=== PATIENT | male | born 1930 | race Caucasian/White ===

== ENCOUNTER → 2019-03-22 | Outpatient (CLI) | payer OTHER | LOC: RAD 10:33 → EDBD 10:33 | DX: J90 Pleural effusion, not elsewhere classified (principal); Z88.0 Allergy status to penicillin; Z88.7 Allergy status to serum and vaccine ==

== ENCOUNTER → 2019-03-26 | Outpatient (CLI) | payer OTHER ==
[2019-03-26 12:40] LABS: HEMATOCRIT 41.7 % (42.0-52.0); HEMOGLOBIN 13.9 gm/dL (14.0-18.0); MCH 28.2 pg (26.0-34.0); MCHC 33.4 g/dL (28.0-37.0); MCV 84.4 fL (80.0-100.0); RBC 4.93 mil/uL (4.50-6.00); WBC 6.1 thou/uL (4.0-11.0)
[2019-03-26 12:42] LABS: CALCIUM 9.4 mg/dL (8.5-10.1); CREATININE 1.1 mg/dL (0.7-1.3); POTASSIUM 4.1 mmol/L (3.5-5.1)
[2019-03-26 12:55] LABS: PROTIME 10.9 Seconds (9.3-11.4)
[2019-03-26 14:13] LABS: CLARITY SLIGHTLY CLOUDY; COLOR YELLOW; SOURCE RIGHT THORACENTESIS; TOTAL VOLUME 60 mL
[2019-03-26 14:15] LABS: SOURCE RIGHT THORACENTESIS; SOURCE RIGHT THORACONTESIS
[2019-03-26 14:31] LABS: BF NUCLEATED CELLS 753; BF RBC 975
[2019-03-26 16:39] LABS: BF MACROPHAGE 13; BF NEUTROPHILS 3
[2019-03-27 10:09] LABS: BODY FLUID ALBUMIN 1.9 g/dL (()); BODY FLUID AMYLASE 46 U/L (()); BODY FLUID GLUCOSE 122 mg/dL (()); BODY FLUID LDH 105 IU/L (()); BODY FLUID PROTEIN 3.2 g/dL (())
--- NOTE | 2019-03-28 14:06 | PATH ---
[facility] [address] [place] [address] PATHOLOGY RPT PROCEDURE Name: HOMAR VILLALOBOS Room #: REG [facility].#: [id number] ������������������ Admission: 03/26/19 ������������������ Date of : [birth year] Discharge: Report #: [id number] Path Case #: [id number] Note [facility] Accession Number: [id number] TESTS RESULT FLAG UNITS REF RANGE LAB Clinician Provided Cytology Information No. of containers..01 Other (Miscellaneous) Source: RT PLEURAL FLUID DIAGNOSIS: RT PLEURAL FLUID NEGATIVE FOR MALIGNANT CELLS. REACTIVE MESOTHELIAL CELLS ARE PRESENT. THIS INTERPRETATION INCLUDES EVALUATION OF A CELL BLOCK. Pathologist ICD10: 02 J91.8 Signed out by: Sherley Bazan MD, Pathologist NPI- [id number] Performed by: Luther Mcnally, [employer] ([facility]) Gross description: 01 25ML, YELLOW, CLOUDY /LCS FLAG LEGEND: L-Low Normal,H-High Normal,LL-Alert Low,HH-Alert High <-Panic Low,>-Panic High,A-Abnormal,AA-Critical Abnormal Performed at: [address] [place] [address] Luis Eduardo Mcmahan MD, [address] [place] [phone] Sherley Bazan MD, Specimen Comment: A courtesy copy of this report has been sent to Specimen Comment: [phone], . Specimen Comment: Report sent to / DR HERNANDEZ Performed at: [address], [place], [place] [id number] MD Luis Eduardo Mcmahan MD Phone: [phone]
== END ==
LOC: ULTRA 09:03 → EDBD 11:47 → ULTRA 11:47
PROVIDERS: Internal Medicine
DX: J90 Pleural effusion, not elsewhere classified (principal); R06.02 Shortness of breath